=== PATIENT | female | born 1990 | race Caucasian/White ===

== ENCOUNTER 2022-09-11 10:48 | Outpatient (CLI) | payer MEDICAID, SELFPAY ==
--- NOTE | 2022-09-11 11:00 | VDLE_ITS ---
Reason For Study: LEG PAIN RIGHT LEFT GSV is normal. CFV is compressible, spontaneous, phasic, CFV is compressible, spontaneous, phasic, competent, and demonstrates normal competent and demonstrates normal augmentation. augmentation. FV is compressible, spontaneous, phasic, competent and demonstrates normal augmentation. POP V is compressible, spontaneous, phasic, competent and demonstrates normal augmentation. T/P Trunk is compressible. PTV is compressible. RT PerV is compressible. Procedure This is a venous duplex using B-mode, color flow and spectral Doppler. Exam performed in department. The exam was diagnostic. A preliminary report was called and/or faxed to Office of Gabriele Javed. VL/Venous Duplex US, Unilateral Interpretation Summary Deep veins of the right lower extremity are patent and compressible segmentally . There is no evidence of right lower extremity deep vein thrombosis. Valvular competence preston ears intact within the proximal deep venous system on the right . The right great saphenous vein a ppears patent and compressible segmentally. Ordering Physician: Gabriele Javed Referring Physician: Gabriele Javed Performed By: Jun Hastings RVT
== END 2022-09-11 23:59 | disposition home or self-care (01) ==
PROVIDERS: PCP Family Medicine; Referring Provider Physician Assistant; Visit Provider Physician Assistant
DX: M79.661 Pain in right lower leg (principal)
CPT/HCPCS: 93971

== ENCOUNTER → 2022-10-06 | Outpatient (CLI) | payer MEDICAID, SELFPAY ==
--- NOTE | 2022-10-06 17:00 | MRI_ITS ---
STUDY: MR Knee W/O Contrast 10/06/2022 7:14 PM REASON FOR EXAM: Female, 32 years old. pain an injury Technologist Notes pt kicked by horse, hyperextended knee TECHNIQUE: Standardized fat and water weighted pulse sequences were obtained in all 3 orthogonal planes. COMPARISON: None. FINDINGS: Normal medial meniscus. Normal hyaline cartilage of the medial femorotibial compartment. Normal medial femoral condyle and tibial plateau. Normal medial collateral ligamentous complex (MCL). Normal distal semimembranosus, gracilis and semitendinosus tendons. Normal lateral meniscus. Normal hyaline cartilage of the lateral femorotibial compartment. There is reactive marrow edema of the lateral femoral condyle and tibial plateau. Normal proximal tibiofibular articulation. There is a partial sprain of the lateral collateral (fibular) ligament. Normal popliteus tendon. Normal biceps femoris tendon. Normal anterior cruciate ligament (ACL). Normal posterior cruciate ligament (PCL). Normal congruent patellofemoral articulation. Normal hyaline cartilage of the patellofemoral compartment. Normal medial and lateral patellar retinaculum. Normal quadriceps tendon. Normal patellar tendon. Normal Hoffa''s fat pad. There is a small volume joint effusion. The soft tissues are unremarkable. The otherwise visualized osseous structures are unremarkable. MRI/Lower Ext Joint Only (Routine) IMPRESSION: There is a small volume joint effusion. There is a partial sprain of the lateral collateral (fibular) ligament. There is reactive marrow edema of the lateral femoral condyle and tibial plateau consistent for a bone bruise. Electronically Signed: Adonis Vernon MD at 19:17 EST ,
== END | disposition home or self-care (01) ==
LOC: MRI 17:00
PROVIDERS: PCP Family Medicine; Referring Provider Physician Assistant; Visit Provider Physician Assistant
DX: S89.91XA Unspecified injury of right lower leg, initial encounter (principal); M25.469 Effusion, unspecified knee; S83.91XA Sprain of unspecified site of right knee, initial encounter; W55.12XA Struck by horse, initial encounter
CPT/HCPCS: 73721